=== PATIENT | female | born 1980 | race Hispanic/Latino ===

== ENCOUNTER 2020-04-29 16:45 | Inpatient (IN) | payer BC ==
[~2020-04-29] VITALS: Ht 165.1 cm; Wt 89.4 kg
[~2020-04-29 16:45] MED LIST: Z.0.ADIPEX-P37.5 MG PO
[2020-04-29] MEDS ORDERED: ONDANSETRON HCL INJ 2MG/ML 2ML 2 MG/ML VIAL IV STA (17:08)
[2020-04-29] MEDS ORDERED: SODIUM CHLORIDE 0.9% 1000ML 1,000 ML IV STA (17:08)
[2020-04-29 17:40] LABS: BASOPHILS % 0.4 % (0.0-1.0); EOSINOPHILS % 0.5 % (0.0-6.0); HEMATOCRIT 40.2 % (34.2-44.1); HEMOGLOBIN 13.6 g/dL (12.0-16.0); LYMPHOCYTES # (AUTO) 1.3 (1.0-3.2); LYMPHOCYTES % 23.8 % (18.0-39.1); MEAN CORPUSCULAR HEMOGLOBIN 28.5 pg (28-32); MEAN CORPUSCULAR HGB CONC 33.8 g/dL (31-35); MEAN CORPUSCULAR VOLUME 84.1 fL (81-99); MONOCYTES # (AUTO) 0.4 (0.2-0.8); MONOCYTES % 7.9 % (4.4-11.3); NEUTROPHILS # (AUTO) 3.7 (2.1-6.9); PLATELET COUNT 367 x10e3/uL (140-360); RED BLOOD COUNT 4.78 x10e6/uL (3.6-5.1)
[2020-04-29] MEDS ORDERED: ACETAMINOPHEN 325 MG TAB PO ONE (17:45)
[2020-04-29 17:56] LABS: INR 0.82; PROTHROMBIN TIME 11.8 seconds (11.9-14.5)
[2020-04-29 17:57] LABS: PARTIAL THROMBOPLASTIN TIME 28.2 seconds (23.8-35.5)
[2020-04-29 18:06] LABS: ALANINE AMINOTRANSFERASE 104 IU/L (0-55); ALBUMIN 3.2 g/dL (3.5-5.0); ALBUMIN/GLOBULIN RATIO 0.7 (0.8-2.0); ALKALINE PHOSPHATASE 105 IU/L (40-150); ANION GAP 13.5 mmol/L (8-16); BLOOD UREA NITROGEN 7 mg/dL (7-26); BUN/CREATININE RATIO 9 (6-25); CALCIUM 9.1 mg/dL (8.4-10.2); CARBON DIOXIDE 20 mmol/L (22-29); CHLORIDE 107 mmol/L (98-107); CREATINE KINASE 34 IU/L (29-168); EST GLOMERULAR FILTRATION RATE > 60 ML/MIN (60-); GLUCOSE 132 mg/dL (74-118); POTASSIUM 3.5 mmol/L (3.5-5.1); SODIUM 137 mmol/L (136-145)
--- NOTE | 2020-04-29 18:25 | Diagnostic Imaging Report ---
EXAMINATION: CHEST SINGLE (PORTABLE) INDICATION: SOB COUGH COMPARISON: None FINDINGS: TUBES and LINES: None. LUNGS: Low lung volumes. Mild bronchial wall thickening. Mild patchy bibasilar opacities. Central vascular congestion. PLEURA: No pleural effusion or pneumothorax. HEART AND MEDIASTINUM: The cardiomediastinal silhouette is unremarkable. BONES AND SOFT TISSUES: No acute osseous lesion. Soft tissues are unremarkable. UPPER ABDOMEN: No free air under the diaphragm. IMPRESSION: Low lung volumes with bibasilar patchy opacities, likely atelectasis, although infection is possible in the appropriate clinical setting. Mild bronchial wall thickening, which may represent bronchitis in the setting of cough. Signed by: Dr. Odalys Lacey MD on 04/29/2020 6:22 PM
--- NOTE | 2020-04-29 18:52 | Emergency Department Note ---
History of Present Illnes History of Present Illness Chief Complaint: Flu Like Symptoms History of Present Illness This is a 40 year old female eports of fever, weakness, chills, and body aches since . 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 Patient denies shortness of breath or difficulty breathing during triage. Historian: Patient Arrival Mode: Car Service Writer Advisor Required: No Onset (how long ago): day(s) (2) Location: LUNGS Quality: COUGH, SOB Radiation: non-radiation Severity: moderate Onset quality: gradual Duration (how long): day(s) (2) Timing of current episode: constant Progression: waxing and waning Chronicity: new Context: recent illness Relieving factors: none Exacerbating factors: none Associated symptoms: cough, fever/chills, shortness of breath, other (BODY ACHES) Treatments prior to arrival: none Past Medical/Family History Physician Review I have reviewed the patient's past medical and family history. Any updates have been documented here. Past Medical History Recent Fever: Yes Clinical Suspicion of Infectio: Yes New/Unexplained Change in Ment: No Past Medical History: None Past Surgical History: Cholecysctectomy, T&A Social History Smoking Cessation: Never Smoker Counseling Performed: No Alcohol Use: Social Any Illegal Drug Use: No TB Exposure/Symptoms: No Physically hurt or threatened: No Family History Family history of heart diseas: No Other Last Tetanus: UTD Any Pre-Existing Lines (PICC,: No Review of Systems Review of Systems Constitutional: malaise EENTM: no symptoms Cardiovascular: no symptoms Respiratory: chest congestion, cough, dyspnea Gastrointestinal: no symptoms Genitourinary: no symptoms Musculoskeletal: other (GEN BODY ACHES) Neurological: no symptoms Psychological: no symptoms Endocrine: no symptoms Hematological/Lymphatic: no symptoms Review of other systems All other systems reviewed and negative. Physical Exam Related Data Allergies: Coded Allergies: No Known Drug Allergies (Verified Allergy, Unknown, 11/09/08) Triage Vital Signs Vital Signs Date Time Temp Pulse Resp B/P (MAP) Pulse Ox O2 Delivery O2 Flow Rate FiO2 04/29/20 17:05 100.2 100 19 152/95 97 Vital signs reviewed: Yes Physical Exam CONSTITUTIONAL Constitutional: well-developed, well-nourished HENT HENT: normocephalic, atraumatic, oropharynx clear/moist, nose normal HENT L/R: left ext ear normal, right ext ear normal EYES Eyes: PERRL, conjunctivae normal NECK Neck: ROM normal PULMONARY Pulmonary: other (DECR BREATH SOUNDS THOUGHOUT) CARDIOVASCULAR Cardiovascular: regular rhythm, heart sounds normal, capillary refill normal, normal rate GASTROINTESTINAL Abdominal: soft, nontender, bowel sounds normal GENITOURINARY Genitourinary: exam deferred SKIN Skin: warm, dry MUSCULOSKELETAL Musculoskeletal: ROM normal NEUROLOGICAL Neurological: alert, oriented x 3, no gross motor or sensory deficits PSYCHOLOGICAL Psychological: mood/affect normal, judgement normal Results Laboratory Result Diagram: 04/29/20 1717 04/29/20 1717 Laboratory Laboratory Tests Test 04/29/20 17:17 White Blood Count 5.58 x10e3/uL (4.8-10.8) Red Blood Count 4.78 x10e6/uL (3.6-5.1) Hemoglobin 13.6 g/dL (12.0-16.0) Hematocrit 40.2 % (34.2-44.1) Mean Corpuscular Volume 84.1 fL (81-99) Mean Corpuscular Hemoglobin 28.5 pg (28-32) Mean Corpuscular Hemoglobin Concent 33.8 g/dL (31-35) Red Cell Distribution Width 12.0 % (11.7-14.4) Platelet Count 367 x10e3/uL (140-360) Neutrophils (%) (Auto) 67.0 % (38.7-80.0) Lymphocytes (%) (Auto) 23.8 % (18.0-39.1) Monocytes (%) (Auto) 7.9 % (4.4-11.3) Eosinophils (%) (Auto) 0.5 % (0.0-6.0) Basophils (%) (Auto) 0.4 % (0.0-1.0) Neutrophils # (Auto) 3.7 (2.1-6.9) Lymphocytes # (Auto) 1.3 (1.0-3.2) Monocytes # (Auto) 0.4 (0.2-0.8) Eosinophils # (Auto) 0.0 (0.0-0.4) Basophils # (Auto) 0.0 (0.0-0.1) Absolute Immature Granulocyte (auto 0.02 x10e3/uL (0-0.1) Prothrombin Time 11.8 seconds (11.9-14.5) Prothromb Time International Ratio 0.82 Activated Partial Thromboplast Time 28.2 seconds (23.8-35.5) Sodium Level 137 mmol/L (136-145) Potassium Level 3.5 mmol/L (3.5-5.1) Chloride Level 107 mmol/L (98-107) Carbon Dioxide Level 20 mmol/L (22-29) Anion Gap 13.5 mmol/L (8-16) Blood Urea Nitrogen 7 mg/dL (7-26) Creatinine 0.80 mg/dL (0.57-1.11) Estimat Glomerular Filtration Rate > 60 ML/MIN (60-) BUN/Creatinine Ratio 9 (6-25) Glucose Level 132 mg/dL (74-118) Calcium Level 9.1 mg/dL (8.4-10.2) Total Bilirubin 0.3 mg/dL (0.2-1.2) Aspartate Amino Transf (AST/SGOT) 143 IU/L (5-34) Alanine Aminotransferase (ALT/SGPT) 104 IU/L (0-55) Alkaline Phosphatase 105 IU/L (40-150) Creatine Kinase 34 IU/L (29-168) Creatine Kinase MB 0.20 ng/mL (0-5.0) Troponin I < 0.001 ng/mL (0-0.300) Total Protein 7.6 g/dL (6.5-8.1) Albumin 3.2 g/dL (3.5-5.0) Globulin 4.4 g/dL (2.3-3.5) Albumin/Globulin Ratio 0.7 (0.8-2.0) Influenza Virus Types A,B Antigen Negative (NEGATIVE) Lab results reviewed: Yes Imaging Imaging results reviewed: Yes Impressions EXAMINATION: CHEST SINGLE (PORTABLE) INDICATION: SOB COUGH COMPARISON: None FINDINGS: TUBES and LINES: None. LUNGS: Low lung volumes. Mild bronchial wall thickening. Mild patchy bibasilar opacities. Central vascular congestion. PLEURA: No pleural effusion or pneumothorax. HEART AND MEDIASTINUM: The cardiomediastinal silhouette is unremarkable. BONES AND SOFT TISSUES: No acute osseous lesion. Soft tissues are unremarkable. UPPER ABDOMEN: No free air under the diaphragm. IMPRESSION: Low lung volumes with bibasilar patchy opacities, likely atelectasis, although infection is possible in the appropriate clinical setting. Mild bronchial wall thickening, which may represent bronchitis in the setting of cough. Signed by: Dr. Odalys Lacey MD on 04/29/2020 6:22 PM Diagnostics Tests Diagnostic test(s) reviewed: Yes Critical Care Time Subsequent provider I assumed direction of critical care for this patient from another provider of my specialty. Assessment & Plan Reassessment Reassessment COUGH, FEVER, BODY ACHES - CHECK CBC, CHEM, UA, CXR, BLOOD CX'S, COVID SWAB, INFLUENZA - R/O BACTERIAL PNEUMONIA, VIRAL PNEUMONIA/COVID19, INFLUENZA, DEHYDRATION, RENAL INSUFF D/W DR GANT, ADMIT OBS TO COVID UNIT Assessment & Plan Final Impression: (1) Pneumonia Assessment & Plan ADMIT TO [facility] UNIT Depart Disposition: ADMITTED Last Vital Signs Date Time Temp Pulse Resp B/P (MAP) Pulse Ox O2 Delivery O2 Flow Rate FiO2 04/29/20 17:05 100.2 100 19 152/95 97 Home Meds Reported Medications Phentermine Hcl (Adipex-P) 37.5 Mg Capsule, 1 TAB PO DAILY 03/22/12 Medications in the ED Ondansetron HCl 4 mg ONCE STAT IV Last administered on 04/29/20 18:14; Admin Dose 4 MG; Start 04/29/20 at 17:08; Stop 04/29/20 at 17:15; Status DC Sodium Chloride 1,000 ml @ 0 mls/hr Q0M STAT IV Last administered on 04/29/20 18:14; Admin Dose 1,000 MLS/HR; Start 04/29/20 at 17:08; Stop 04/29/20 at 17:11; Status DC Acetaminophen 975 mg ONCE ONCE PO Last administered on 04/29/20 18:14; Admin Dose 975 MG; Start 04/29/20 at 17:45; Stop 04/29/20 at 17:46; Status DC VAHE CUTLER MD Apr 29, 2020 18:52
[2020-04-29 19:09] LABS: CLARITY,URINE HAZY (CLEAR); COLOR,URINE YELLOW (YELLOW); KETONES,URINE NEGATIVE (NEGATIVE); LEUKOCYTE ESTERASE ,URINE NEGATIVE (NEGATIVE); NITRITE,URINE NEGATIVE (NEGATIVE); PROTEIN,URINE DIPSTICK 1+ (NEGATIVE)
[2020-04-29 19:10] LABS: BACTERIA,URINE FEW /HPF; BILIRUBIN,URINE SMALL (NEGATIVE); EPITHELIAL CELLS,URINE FEW /LPF; PREGNANCY TEST, URINE NEGATIVE (NEGATIVE); RBC,URINE 0-5 /HPF (0-5); URINE UROBILINOGEN 2 mg/dL (0.2 - 1); WBC,URINE (MAN) 0-5 /HPF (0-5)
[2020-04-29] MEDS ORDERED: ONDANSETRON HCL INJ 2MG/ML 2ML 2 MG/ML VIAL IV PRN (19:15)
[2020-04-29] MEDS ORDERED: CEFTRIAXONE SOD 1 GM/NS 50 ML 50 ML IV SCH ×2 (19:30→21:00)
[2020-04-29] MEDS: SODIUM CHLORIDE 0.9% 1000ML 1,000 ML IV SCH ×2 (20:53→21:21)
--- OUTSIDE RECORDS SUMMARY | 2020-04-29 21:19 | XMS REPORT | Continuity of Care Document ---
Author Author [facility] Organization [facility] Address [address] [place] [id number] Phone Unavailable Care Team Providers Care Secretary Administrative Assistant Name Role Phone Selene CUTLER Attphys Unavailable Problems This patient has no known problems. Allergies, Adverse Reactions, Alerts This patient has no known allergies or adverse reactions. Medications This patient has no known medications. Procedures This patient has no known procedures. Results Test Description Test Time Test Comments Results Result Comments Source CHEST SINGLE (PORTABLE) 2020-04-29 18:20:[address] [address] Patient Name: NEHEMIAS ALBERTO MR #: [id number] : 1980 Age/Sex: 40/F Req #: [id number] Adm Physician: Ordered by: VAHE CUTLER MD Report #: [id number] Location: ER Room/Bed: Procedure: [id number] DX/CHEST SINGLE (PORTABLE) Exam Date: Exam Time: REPORT STATUS: Signed EXAMINATION: CHEST SINGLE (PORTABLE) INDICATION: SOB COUGH COMPARISON: None FINDINGS: TUBES and LINES: None. LUNGS: Low lung volumes. Mild bronchial wall thickening. Mild patchy bibasilar opacities. Central vascular congestion. PLEURA: No pleural effusion or pneumothorax. HEART AND MEDIASTINUM: The cardiomediastinal silhouette is unremarkable. BONES AND SOFT TISSUES: No acute osseous lesion. Soft tissues are unremarkable. UPPER ABDOMEN: No free air under the diaphragm. IMPRESSION: Low lung volumes with bibasilar patchy opacities, likely atelectasis, although infection is possible in the appropriate clinical setting. Mild bronchial wall thickening, which may represent bronchitis in the setting of cough. Signed by: Dr. Ming Rasheed MD on 04/29/2020 6:22 PM Dictated By: MING RASHEED MD 21 Transcribed By: CHRISSIE on 04/29/201821 COPY TO: VAHE CUTLER MD
[2020-04-29] MEDS: AZITHROMYCIN 500MG/NS 250 ML 250 ML IV SCH (21:20)
[2020-04-30] VITALS (9 sets, daily range): BP systolic 119–155; BP diastolic 77–96
--- NOTE | 2020-04-30 00:30 | NUR ---
Pt admitted to room 177 via WC from home. Pt alert and oriented to name, hospital, time and diagnosis: PNA. Pt c/o fever, chills JUAN, and weakness for the past 3 days. Pt afebrile, T97.7 at this time. Pt denies pain or SOB at this time. O2 sat 100% on RA. Pt skin warm and dry, no wounds noted. Lungs CTA RUL, FLEX, diminished RLL, LLL. Pt last BM 04/29, brown and formed. Urine dark and clear. Pt denies dysuria. Pt oriented to room, call light within reach, bed low and locked.
[2020-04-30] MEDS: ACETAMINOPHEN 325 MG TAB PO PRN ×3 (03:14→16:35)
[2020-04-30 05:24] LABS: BASOPHILS % 0.3 % (0.0-1.0); EOSINOPHILS % 0.5 % (0.0-6.0); HEMATOCRIT 37.1 % (34.2-44.1); HEMOGLOBIN 12.5 g/dL (12.0-16.0); LYMPHOCYTES # (AUTO) 1.6 (1.0-3.2); LYMPHOCYTES % 23.3 % (18.0-39.1); MEAN CORPUSCULAR HEMOGLOBIN 29.1 pg (28-32); MEAN CORPUSCULAR HGB CONC 33.7 g/dL (31-35); MEAN CORPUSCULAR VOLUME 86.5 fL (81-99); MONOCYTES # (AUTO) 0.6 (0.2-0.8); MONOCYTES % 8.6 % (4.4-11.3); NEUTROPHILS # (AUTO) 4.5 (2.1-6.9); PLATELET COUNT 315 x10e3/uL (140-360); RED BLOOD COUNT 4.29 x10e6/uL (3.6-5.1); RED CELL DISTRIBUTION WIDTH 11.9 % (11.7-14.4)
[2020-04-30 05:47] LABS: ALANINE AMINOTRANSFERASE 84 IU/L (0-55); ALBUMIN 3.1 g/dL (3.5-5.0); ALBUMIN/GLOBULIN RATIO 0.8 (0.8-2.0); ALKALINE PHOSPHATASE 86 IU/L (40-150); ANION GAP 13.6 mmol/L (8-16); BLOOD UREA NITROGEN 5 mg/dL (7-26); BUN/CREATININE RATIO 7 (6-25); CALCIUM 8.5 mg/dL (8.4-10.2); CARBON DIOXIDE 17 mmol/L (22-29); CHLORIDE 109 mmol/L (98-107); CREATININE, SERUM 0.67 mg/dL (0.57-1.11); EST GLOMERULAR FILTRATION RATE > 60 ML/MIN (60-); GLUCOSE 125 mg/dL (74-118); POTASSIUM 3.6 mmol/L (3.5-5.1); SODIUM 136 mmol/L (136-145)
[2020-04-30 06:20] LABS: CREATINE KINASE 35 IU/L (29-168)
--- NOTE | 2020-04-30 06:55 | Diagnostic Imaging Report ---
EXAMINATION: CHEST SINGLE (PORTABLE) COMPARISON: Chest x-ray 04/29/2020 INDICATION: ^Y ^PNEUMONIA ^[id number] ^0540 ^Y DISCUSSION: Frontal view of the chest obtained at 0547 hours. HEART AND MEDIASTINUM: The cardiomediastinal silhouette is unremarkable. LINES: None. LUNGS/PLEURA: The lungs are well inflated. New left perihilar airspace opacity. No interstitial edema. Vascular markings are normal. No pleural effusion or pneumothorax. BONES AND SOFT TISSUES: No focal osseous lesion. The soft tissues are normal. IMPRESSION: Left perihilar airspace opacity is suggestive of pneumonia. Recommend close interval follow-up to document resolution. Signed by: Dr. Jeremy Balderas MD on 04/30/2020 6:51 AM
[2020-04-30] MEDS ORDERED: ZOLPIDEM TARTRATE 5 MG TAB PO PRN (08:15)
[2020-04-30] MEDS ORDERED: CEFTRIAXONE SOD 1 GM/NS 50 ML 50 ML IV SCH (09:00)
--- NOTE | 2020-04-30 10:22 | Consultation ---
DATE OF CONSULTATION: Pulmonary Critical Care Consultation CHIEF COMPLAINT: Fever for 3 days and cough. HISTORY OF PRESENT ILLNESS: The patient is a 40-year-old woman. She has a history of fever for 3 days. She notes cough. She does not have phlegm production. She denies dyspnea. She has no chest pain. She has no nausea or vomiting. PAST SURGICAL HISTORY: Tonsillectomy. PAST MEDICAL HISTORY: 1. No prior history of asthma or respiratory problems. 2. No history of diabetes. 3. No history of hypertension. FAMILY HISTORY: History of diabetes and hypertension in the family. SOCIAL HISTORY: The patient is not a smoker. She is not a drinker. 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 She denies any recent travel. Her mother was recently in the hospital with sinusitis and her [id number] is currently in the hospital with fevers and some respiratory problems, but was COVID negative. REVIEW OF SYSTEMS: The patient has fevers. There was some headache. She has no neck pain. She is not complaining of any chest pain. She has no dyspnea. She has no abdominal pain. She has no nausea or vomiting. She has no leg edema. Skin examination shows no rashes. She has no focal neurological abnormalities. PHYSICAL EXAMINATION: VITAL SIGNS: The blood pressure is 119/77 and saturation is 98%. Pulse is 78. HEENT: Shows no facial swelling or erythema. CARDIAC: Reveals regular rate and rhythm with normal S1 and S2. LUNGS: Auscultation of lungs reveals clear breath sounds bilaterally. There is no wheezing. ABDOMEN: Soft and nontender. There is no rebound or guarding. EXTREMITIES: Shows no leg edema or calf tenderness. There is no cyanosis or clubbing. SKIN: Shows no rashes. NEUROLOGICAL: Shows no focal abnormalities. LABORATORY DATA: The BUN to creatinine ratio is 5 to 0.67. Glucose is 125. AST is 105 and the ALT is 84. Albumin is 3.1. The carbon dioxide is 17 with a chloride of 109. IMPRESSION: 1. Viral syndrome and probable viral pneumonia. 2. Possible COVID-19 infection. PLAN: 1. Judicious use of IV fluids. 2. Zithromax and Rocephin. 3. Repeat COVID-19 testing. Alexis Verde MD Yanely/ASHOKL /[id number]
[2020-04-30 13:51] LABS: CREATINE KINASE 39 IU/L (29-168)
--- NOTE | 2020-04-30 16:00 | NUR ---
Dr. Iyer here to see pt and states pt can be moved out of obs unit, but must remain on droplet precaution.
[2020-04-30] MEDS: ASCORBIC ACID 500 MG TAB PO SCH (16:35)
[2020-04-30] MEDS: CEFEPIME 1GM/NS 0.9% 50 ML 50 ML IV SCH (18:39)
--- NOTE | 2020-04-30 18:54 | History and Physical ---
HISTORY OF PRESENT ILLNESS: The patient is a 40-year-old female with past medical history significant for any medical condition, came here because of fever and cough for three days. She was admitted to the COVID unit as a precaution. She tested COVID negative . Chest x-ray showed some infiltrates. REVIEW OF SYSTEMS: CARDIOVASCULAR: No chest pain or palpitations. RESPIRATORY: She has some cough, but no sputum, some fever. GASTROINTESTINAL: No nausea or vomiting. No diarrhea. GENITOURINARY: No frequency, no dysuria. SOCIAL HISTORY: She does not smoke. She does not drink. She works as medical records receptionist. PAST MEDICAL HISTORY: No significant past medical history. PAST SURGICAL HISTORY: Tonsillectomy. PHYSICAL EXAMINATION: HEART: Showed regular rhythm. Normal S1, S2 sound. LUNGS: Clear bilaterally. ABDOMEN: Soft, nondistended. EXTREMITIES: Show no edema. VITAL SIGNS: Blood pressure is 119/77, temperature 37.8, heart rate 78 per minute, respiratory rate 20 per minute, oxygen saturation 98%. LABORATORY DATA: On the blood work, we have CBC; white blood count 6.66, hemoglobin 12.5, hematocrit 37.1, and platelet count 315,000. CMP, sodium 136, potassium 3.6, chloride 109, CO2 of 17, BUN 5, creatinine 0.67, GFR is 60, glucose is 125, lactic acid 1.5, calcium 8.5, total bilirubin 0.2, AST is elevated at 105, down from 143 yesterday. ALT is 84, down from 104 yesterday. Alkaline phosphatase 86. Creatine kinase 35, CK-MB 0.20, troponin 0.01. Total protein 6.9, albumin 3.1, globulin 3.8. SEROLOGIES: Coronavirus disease is negative . Last chest x-ray show left perihilar airspace opacity, suggestive of pneumonia. Recommend close interval followup to Coumadin resolution. IMPRESSION: 1. Lobar pneumonia. 2. Elevated LFTs. 3. Obesity. PLAN OF TREATMENT: We are going to continue with Zithromax 500 mg IV daily, ceftriaxone 1 g IV twice a day. Continue Tylenol 325 mg q.4 hours as needed for pain or fever, Zofran 4 mg IV q.4 hours as needed for nausea and vomiting, Ambien 5 mg at night p.r.n. for insomnia. Dr. Iyer is on the case for Infectious Diseases, Dr. Alexis Verde is on the case for Pulmonary. I discussed the case with Dr. Verde. Due to the fact that there is high suspicion for Coronavirus disease, we are going to repeat the COVID-19 again and if it is negative for the 2nd time, then the patient can be removed from isolation and transferred to the regular medical floor. The patient is doing well so far. Right now, she is afebrile care tomorrow. MD GAUDENCIO Nagel/SAMREEN /[id number]
[2020-04-30] MEDS: AZITHROMYCIN 500MG/NS 250 ML 250 ML IV SCH (20:00)
--- NOTE | 2020-04-30 21:40 | Consultation ---
DATE OF CONSULTATION: ADDENDUM: PAST MEDICAL HISTORY: None. PAST SURGICAL HISTORY: Tonsillectomy. ALLERGIES: NKA. SOCIAL HISTORY: Does not smoke, or drug abuse. She works as emergency medical tech. She has some cats outside the house. REVIEW OF SYSTEMS: She said her fever is improving. When she gets fever, she get some headache, but otherwise she has no complaints at present time. HEENT: Negative. PULMONARY: Negative. CARDIAC: Negative. : Negative. GI: Negative. SKIN: There is no rash. EXTREMITIES: Joint negative. LABORATORY DATA: White count is 6.66, hemoglobin 12, hematocrit 37. Her COVID-19 first on 04/29 was negative. 04/30, is still pending. Influenza A and B are negative. Her sodium 136, potassium 3.6 creatinine 0.67. Her liver enzyme, AST 105, ALT 84. She had a chest x-ray in which showed left hilar airspace opacity. PHYSICAL EXAMINATION: GENERAL: Currently alert, oriented, does not seem to be in acute distress. VITAL SIGNS: Stable, currently. T-max 100.5. HEENT: She is not icteric. NECK: Supple. CHEST: Clear. HEART: S1 and S2. ABDOMEN: Soft. IMPRESSION: 1. Community-acquired pneumonia. 2. Elevated liver enzyme. 3. History of . Rule out toxo, CMV. We will also rule out EBV, elevated liver enzymes could be from infection, pneumonia or mentioned above. I will check also hepatitis panel. We will put on Rocephin and azithromycin. In the meantime, we will keep on droplet isolation since we had admitted her for COVID-19. Further recommendations to follow. Discussed with the patient and discussed with medical team. MD YOSELYN Araiza/SAMREEN /[id number]
[2020-05-01] VITALS: BP 152/83
[2020-05-01] MEDS: ACETAMINOPHEN 325 MG TAB PO PRN
[2020-05-01 04:00] VITALS: BP 132/85
[2020-05-01 06:16] LABS: BASOPHILS % 0.4 % (0.0-1.0); EOSINOPHILS # (AUTO) 0.1 (0.0-0.4); EOSINOPHILS % 1.7 % (0.0-6.0); HEMATOCRIT 37.6 % (34.2-44.1); HEMOGLOBIN 12.8 g/dL (12.0-16.0); LYMPHOCYTES % 38.8 % (18.0-39.1); MEAN CORPUSCULAR HEMOGLOBIN 29.4 pg (28-32); MEAN CORPUSCULAR VOLUME 86.2 fL (81-99); MONOCYTES # (AUTO) 0.7 (0.2-0.8); MONOCYTES % 9.2 % (4.4-11.3); NEUTROPHILS # (AUTO) 3.8 (2.1-6.9); NEUTROPHILS % 49.4 % (38.7-80.0); PLATELET COUNT 324 x10e3/uL (140-360); RED BLOOD COUNT 4.36 x10e6/uL (3.6-5.1); RED CELL DISTRIBUTION WIDTH 11.9 % (11.7-14.4)
[2020-05-01] MEDS: CEFEPIME 1GM/NS 0.9% 50 ML 50 ML IV SCH (06:18)
[2020-05-01 06:36] LABS: ALANINE AMINOTRANSFERASE 84 IU/L (0-55); ALBUMIN/GLOBULIN RATIO 0.8 (0.8-2.0); ALKALINE PHOSPHATASE 88 IU/L (40-150); ANION GAP 12.8 mmol/L (8-16); BLOOD UREA NITROGEN 5 mg/dL (7-26); BUN/CREATININE RATIO 7 (6-25); CALCIUM 8.8 mg/dL (8.4-10.2); CARBON DIOXIDE 21 mmol/L (22-29); CHLORIDE 108 mmol/L (98-107); CREATININE, SERUM 0.67 mg/dL (0.57-1.11); EST GLOMERULAR FILTRATION RATE > 60 ML/MIN (60-); GLUCOSE 99 mg/dL (74-118); POTASSIUM 3.8 mmol/L (3.5-5.1); SODIUM 138 mmol/L (136-145)
[2020-05-01] MEDS: ASCORBIC ACID 500 MG TAB PO SCH (08:17)
[2020-05-01 08:40] VITALS: BP 126/79
--- NOTE | 2020-05-01 08:53 | Progress Note ---
DATE: SUBJECTIVE: The patient feels better. She is not having fevers. A repeat COVID test was negative. PHYSICAL EXAMINATION: VITAL SIGNS: Her temperature last night was 100. Her blood pressure was 132/85, saturation was 99%. HEENT: No facial swelling or erythema. CARDIAC: Reveals regular rate and rhythm with normal S1 and S2. LUNGS: Auscultation of lungs shows clear breath sounds bilaterally. There is no wheezing. ABDOMEN: Soft and nontender. There is no rebound or guarding. EXTREMITIES: There is no leg edema. LABORATORY DATA: BUN to creatinine ratio is 5 to 0.67. The carbon dioxide is 21. The ALT is 84 and the AST is 114. Albumin is 3. White blood cell count is within normal limits. IMPRESSION: 1. Atypical pneumonia. 2. Abnormal liver enzymes. 3. Fever. PLAN: 1. The patient will be discharged home. 2. Continue current antibiotics. 3. Continue current fluids and Tylenol. Alexis Verde MD Yanely/SAMREEN /[id number]
[2020-05-01] MEDS ORDERED: ZINC SULFATE 220 MG CAP PO SCH (09:00)
[2020-05-01 09:02] VITALS: BP 126/79
--- NOTE | 2020-05-01 09:12 | NUR ---
Dictated DC summary: [id number]
[2020-05-01] MEDS ORDERED: LEVAQUIN750 MG PO (09:19)
--- NOTE | 2020-05-01 09:37 | Discharge Summary ---
ADMITTING DIAGNOSES: 1. Viral syndrome. 2. Obesity, BMI 33. DISCHARGE DIAGNOSES: 1. Left-sided pneumonia, likely gram-negative jerri. 2. Fatty liver disease. 3. Obesity, BMI 33. 4. Nonalcoholic steatohepatitis. HOSPITAL COURSE: This is a 40-year-old woman initially admitted to the [facility] with diagnosis of viral syndrome. Initially, it was thought the patient had either influenza or COVID-19 viral infection. The patient was negative for influenza type A and B antigen on admission. During this hospitalization, the patient was checked for coronavirus via PCR twice, first on April 29, 2020, and then repeat on April 30, 2020. On both occasions, she was negative. The patient was also found to have elevated hepatic transaminases during this hospitalization. It was felt that her elevated liver enzymes were likely secondary to nonalcoholic steatohepatitis. The patient's condition on discharge is stable. During this hospital stay, the patient's blood and urine cultures were negative. During this hospitalization, the patient was checked for cytomegalovirus and Shelbi-Morse virus. Viral panels were ordered, but the results were still pending. The patient had hepatitis profile drawn during this hospitalization, but once again, these results are also still pending. The patient also had an antinuclear antibody screen as well as antimitochondrial antibody screen drawn during this hospitalization, both are also still pending on the day of discharge. DISCHARGE MEDICATIONS: Levofloxacin 750 mg daily for 10 days. FOLLOWUP INSTRUCTIONS: The patient is instructed to follow up with her primary care physician, name myself, Dr. Vasquez Farfan, within 1 week. The patient is instructed to avoid acetaminophen since she has elevated hepatic transaminases. The patient was counseled on weight loss, which would be helpful in regard to her fatty liver disease, which is causing her nonalcoholic steatohepatitis. MD CIRILO Herrera/SAMREEN /[id number]
--- NOTE | 2020-05-01 09:58 | NUR ---
Patient was given discharge information, denies any questions. Patient waiting for her ride.
--- NOTE | 2020-05-01 10:15 | NUR ---
Patient left via wheelchair with all belongings.
--- NOTE | 2020-05-01 11:59 | Consultation ---
DATE OF CONSULTATION: REASON FOR CONSULTATION: Fever, chills, headache, viral infection versus other. HISTORY OF PRESENT ILLNESS: This patient, who is a very pleasant 40-year-old female. 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 The cough is nonproductive. The patient, who denies any past medical history. PAST MEDICAL HISTORY: Obesity, otherwise negative. PAST SURGICAL HISTORY: She denies. DICTATION ENDS HERE MD YOSELYN Araiza/MODL /[id number]
== END 2020-05-01 10:34 | disposition home or self-care (01) | DRG 179 ==
LOC: ER 16:45 → ERHOLD 21:16 → IMCU 04-30 00:29
PROVIDERS: ADMIT Internal Medicine; ATTEND Internal Medicine
DX: J15.6 Pneumonia due to other Gram-negative bacteria (principal); R79.89 Other specified abnormal findings of blood chemistry; E66.9 Obesity, unspecified; Z11.59 Encounter for screening for other viral diseases; Z77.9 Other contact with and (suspected) exposures hazardous to health; K76.0 Fatty (change of) liver, not elsewhere classified; Z68.33 Body mass index [BMI] 33.0-33.9, adult; K75.81 Nonalcoholic steatohepatitis (NASH); Z83.3 Family history of diabetes mellitus; Z82.49 Family history of ischemic heart disease and other diseases of the circulatory system
CPT/HCPCS: 36415; 71045; 80053; 81001; 81025; 82248; 82390; 82550; 82553; 83036; 83605; 84484; 85025; 85610; 85730; 86039; 86255; 86644; 86645; 86663; 86664; 86665; 86777; 86778; 87040; 87086; 87400; 87635; 99284; J0456; J0692; J0696; J2405; J7030